=== PATIENT | female | born 1960 | race Caucasian/White ===

== ENCOUNTER 2016-03-21 12:00 | Outpatient (CLI) | payer OTHER | END 2016-03-21 12:01 | disposition home or self-care (01) | DX: K50.00 Crohn's disease of small intestine without complications (principal) ==

== ENCOUNTER 2016-04-29 13:36 | Outpatient (CLI) | payer OTHER | END 2016-04-29 13:37 | disposition home or self-care (01) | DX: Z71.89 Other specified counseling (principal) ==

== ENCOUNTER 2017-05-20 08:58 | Outpatient (CLI) | payer OTHER ==
[2017-05-20 12:45] LABS: BASOPHILS % (AUTO) 0.4 %; EOSINOPHILS # (AUTO) 0.2 10^3/uL (0.0-0.7); EOSINOPHILS % (AUTO) 2.4 %; HGB - HEMOGLOBIN 13.7 g/dL (12.0-16.0); LYMPHOCYTES # (AUTO) 2.2 10^3/uL (1.5-3.5); LYMPHOCYTES % (AUTO) 33.9 %; MEAN CORPUSCULAR HEMOGLOBIN 31.3 pg (27.0-31.0); MEAN CORPUSCULAR HGB CONC 33.2 g/dL (32.0-36.0); MEAN CORPUSCULAR VOLUME 94.4 fL (81.0-99.0); MONOCYTES # (AUTO) 0.4 10^3/uL (0.0-1.0); MONOCYTES % (AUTO) 6.4 %; NEUTROPHILS # (AUTO) 3.6 10^3/uL (1.5-6.6); NEUTROPHILS % (AUTO) 56.9 %; PLT - PLATELET COUNT 191 10^3/uL (130-450); RED BLOOD COUNT 4.38 10^6/uL (4.20-5.40); RED CELL DISTRIBUTION WIDTH 13.6 % (12.0-15.0); WHITE BLOOD COUNT 6.4 x10^3/uL (4.8-10.8)
[2017-05-20 12:52] LABS: ALBUMIN 3.6 g/dL (3.2-5.5); ALKALINE PHOSPHATASE 69 IU/L (42-121); ALT ALANINE AMINOTRANSFERASE 18 IU/L (10-60); AST ASPARTATE AMINOTRANSFERASE 29 IU/L (10-42); BILIRUBIN,TOTAL 0.5 mg/dL (0.2-1.0); BUN - BLOOD UREA NITROGEN 17 mg/dL (6-20); CALCIUM 8.7 mg/dL (8.5-10.3); CARBON DIOXIDE - CO2 22 mmol/L (21-32); CHLORIDE 106 mmol/L (101-111); CHOL/HDL RATIO 3.1 (<4.4); CHOLESTEROL 164 mg/dL; GFR - MDRD 58 (>89); GLUCOSE 116 mg/dL (70-100); HDL CHOLESTEROL 53 mg/dL; LDL CHOLESTEROL,CALCULATED 86 mg/dL; LDL/HDL RATIO 1.6 (<4.4); SODIUM 137 mmol/L (135-145); TOTAL PROTEIN 7.3 g/dL (6.7-8.2); VLDL CHOLESTEROL 25 mg/dL
== END 2017-05-20 08:59 | disposition home or self-care (01) ==
LOC: LAB.WCP 08:58
PROVIDERS: ATTEND Physician Assistant Medical
DX: Z00.00 Encounter for general adult medical examination without abnormal findings (principal); Z71.89 Other specified counseling
CPT/HCPCS: 36415; 80053; 80061; 83721; 84443; 85025; 86317

== ENCOUNTER 2017-06-03 12:09 | Outpatient (CLI) | payer OTHER ==
--- NOTE | 2017-06-03 18:22 | Mammography Report ---
DIGITAL SCREENING MAMMOGRAM: 06/03/2017 HISTORY: Asymptomatic, routine screening. TECHNIQUE: Bilateral digital CC and MLO projections. COMPARISON: 12/23/2014, 07/15/2013, 05/25/2012, 02/09/2011, and 02/03/2010. FINDINGS: The breast tissue is heterogeneously dense. There is no dominant mass, architectural distortion, skin thickening, suspicious clustered microcalcifications, or interval change. IMPRESSION: NEGATIVE. BIRADS category: 1, negative. Suggest return to routine screening in 12 months. STANDARD QUALIFYING STATEMENTS 1. This examination was reviewed with the aid of Computed-Aided Detection (CAD) . 2. A negative or benign imaging report should not delay biopsy if clinically suspicious findings are present. Consider surgical consultation if warranted. More than 5 % of cancers are not identified by imaging. 3. Dense breasts may obscure an underlying neoplasm. TD: 06/03/2017 18:21 JASON
== END 2017-06-03 12:10 | disposition home or self-care (01) ==
LOC: DI.N 12:09
PROVIDERS: ATTEND Physician Assistant Medical
DX: Z12.31 Encounter for screening mammogram for malignant neoplasm of breast (principal)
CPT/HCPCS: 77067